=== PATIENT | female | born 1950 | race Caucasian/White ===

== ENCOUNTER 2024-10-22 11:32 | Emergency (ER) | payer BC, SELFPAY ==
[2024-10-22] VITALS (10 sets, daily range): BP systolic 154–210; BP diastolic 77–100; PULSE 76–82; BMI 29.8
[2024-10-22 11:38] LABS: Glucose - Point of Care 279 mg/dl (70-99)
[2024-10-22 11:49] LABS: % Basophils 0.6 % (0-2); % Eosinophils 2.9 % (0-6); % Immature Granulocytes 0.2 % (0-0.5); % Lymphocytes 33.1 % (20.5-51.1); % Monocytes 9.2 % (1.7-9.3); Absolute Basophils 0.1 10^3/uL (0-0.2); Absolute Eosinophils 0.3 10^3/uL (0-0.7); Absolute Lymphocytes 3.3 10^3/uL (1.2-3.4); Absolute Monocytes 0.9 10^3/uL (0.1-0.6); Absolute Neutrophils 5.4 10^3/uL (1.4-6.5); Hematocrit 35.3 % (37.0-47.0); Mean Corpuscular Hgb 29.3 pg (27.0-31.0); Mean Corpuscular Volume 86.3 fL (81.0-99.0); Mean Platelet Volume 11.2 fL (7.4-10.4); Nucleated Red Blood Cells % 0 %; Platelet Count 248 10^3/uL (130-400); Red Blood Cell Count 4.09 10^6/uL (4.20-5.40); Red Cell Dist. Width 12.6 % (11.5-14.5)
[2024-10-22 12:11] LABS: ALT (SGPT) 19 U/L (0-35); AST (SGOT) 19 U/L (14-36); Albumin 4.5 g/dl (3.5-5.0); Alkaline Phosphatase 53 U/L (38-126); Blood Urea Nitrogen 33 mg/dl (7-17); Calcium 9.7 mg/dl (8.4-10.2); Carbon Dioxide 27 mmol/L (22-30); Chloride 102 mmol/L (98-107); Estimated Creatinine Clearance 43 ml/min; Glucose 265 mg/dl (70-99); Potassium 4.1 mmol/L (3.5-5.1); Sodium 140 mmol/L (135-145); Total Bilirubin 0.6 mg/dl (0.2-1.3); Total Protein 7.2 g/dl (6.3-8.2); eGFR 43.15
--- NOTE | 2024-10-22 13:00 | ED.GENMED ---
History of Present Illness
General
Chief Complaint: Blood Sugar Problem
Source: patient
Exam Limitations: none
Time Seen by Provider: 10/22/24 12:28
Nursing documentation reviewed up to this point in time: agreed with
History of Present Illness
History of Present Illness:
74 y/o F with h/o HTN, HLD, IDDM, cva no deficits
also on metformin
initially EMS told RN that pt had episode of low blood sugar this morning while at exercise class at [facility] where she lives.
pt says she didn't eat this morning because she was planning on going to [place] at 11
she didn't think she gave herself her insulin becuase she didnt eat
went to exercise class and recalls feeling like she was going to pass out, her eyes were closed and she was lightheaded
she never fully passed out but the instructor noticed she was profusely sweating
i spoke directly with the class instructor
as the class went on, her eyes closed and she was doing weird movements with her tongue, she asked her several times if she was ok and pt was responding to her
class finished and the instructor took her to her room but pt was really sweaty amd tjat was odd
that's when they claled 911
pt says her dexcom showed no BG < 150s
she did call her daughter and she told her to eat some peanut butter which she did just in case her sugar was low but it never was
for ems BG 191
pt feels back to herself now
daughter who i salso at bedside said she is at her baseline but that she sometimes has trouble understanding her limits and does too much since she had a stroke
no headache, confusion, ewakness, neck pain, fever, urinary sypmtoms, abd pain, vomting, diarrhea, dehydration, chest pain, shortness of breath
no h/o alcohol use
no seizure disorder
Past History
Past History
ED Past Medical History: CVA, HTN, Hypercholesterolemia and NIDDM
ED Past Surgical History: Gynecological and Orthopedic
Social History
Tobacco: Non-smoker
Living: other (Independent living)
Employment: Retired
Phy Exam
Physical Exam
Physical Exam:
GENERAL: Alert , in no apparent distress very well appearing
HEAD: NCAT
EYE: pupils equal and reactive, no nystagmus, no photophobia
NECK: Supple,full rom, nontender
ENT: o/p clr, mmm.
CARDIAC: Regular rate and rhythm . no edema
LUNGS: Clear breath sounds bilaterally, no acute respiratory distress, no wheezes/rales/rhonchi
ABDOMEN: Soft, without focal tenderness, no r/g, no cvat
NEUROLOGICAL: Alert and orientedx 4, cn intact, no facial asymmetry, 5/5 strength in UE/LE, sensation intact, romberg neg, ambulates without assistance, neg pronator drift
SKIN: Warm and dry, skin intact.
MUSCULOSKELETAL: No edema, well perfused.
PSYCH: Normal and appropriate interaction.
Course
Orders/Labs/Results
Orders:
Orders
10/22/24 11:43
Alcohol Urgent
CBC/With Diff [Complete Blood Count/With Diff] Urgent
CMP [Comprehensive Metabolic Panel] Urgent
10/22/24 12:44
Electrocardiogram (*1) Urgent
Reason for Study: Syncope
EKG- Treatment ONCE
Orthostatic VS- Treatment ONCE
10/22/24 13:19
Add On- LAB Urgent
Tests Added?: alcohol
CT Head W/o Iv Contrast Urgent
Comment:
Reason For Exam: ams
10/22/24 15:04
Troponin I Urgent
Abnormal Lab Results
10/22/24 10/22/24
11:37 11:43
RBC 4.09 L 10^6/uL
(4.20-5.40)
Hct 35.3 L %
(37.0-47.0)
MPV 11.2 H fL
(7.4-10.4)
Absolute Monos (auto) 0.9 H 10^3/uL
(0.1-0.6)
BUN 33 H mg/dl
(7-17)
Creatinine 1.3 H mg/dL
(0.6-1.0)
Glucose 265 H mg/dl
(70-99)
POC Glucose 279 H mg/dl
(70-99)
10/22/24 11:43
10/22/24 11:43
Vital Signs
Initial and Last Documented VS:
Initial Vital Signs
Temp Pulse Resp BP Pulse Ox
36.6 C 75 15 155/86 97
10/22/24 11:40 10/22/24 11:40 10/22/24 11:40 10/22/24 11:40 10/22/24 11:40
Last Documented Vital Signs
Temp Pulse Resp BP Pulse Ox
36.6 C 79 20 208/88 97
10/22/24 11:40 10/22/24 15:30 10/22/24 15:30 10/22/24 16:00 10/22/24 15:36
MDM/Problems Addressed
Differential Diagnosis Includes:
NEAR SYNCOPE, SEIZURE, ORTHOSTASIS, ACS, STROKE
MDM/Problems Addressed:
74 y/o F
h/o cva, orthostasis
here with what soudned like near syncoe while at exercise class; hadn't eaten and was doin gmild exercise, closed her eyes and had a funny movement with her mouth and tongue but was resonsive
profusely sweat and then returned to baseline
bg normal despite triage note and ems note
exam here unreamrkable otherthan mild orthostasis with standing
bun/cr mildly elevated supporting she was maybe dehydrated
given IVf
w/u with head ct neg, ekg/trop neg
pt feels well no monitor activity
ambluated well no issues
d/w ed attending
d/c home
return precautions
*Critical Care Note
Total Time (30-74mins, 75-104mins- exclusive of procedures): Not Applicable
ED Attending Note
-
Portions of this chart may have been created with voice recognition software.� Occasional wrong word or��sound alike� substitutions may have occurred due to the inherent limitations of voice recognition software.
Discharge Plan
Departure
Patient Disposition: Home (Routine Discharge)
Date of Disposition: 10/22/24
Time of Disposition: 15:51
Patient with high blood pressure during this ER visit?: Yes
Condition: Fair
Covid-19: Not Applicable
Discharge Problem:
Near syncope
Instructions: Near Fainting (DC)
Prescriptions:
No Action
atorvastatin 40 mg tablet
40 mg PO QPM
clopidogrel 75 mg tablet
75 mg PO DAILY
amlodipine 10 mg tablet
10 mg PO DAILY
metformin 1,000 mg tablet
1,000 mg PO BID@0800,1700
losartan 25 mg tablet
25 mg PO DAILY
ergocalciferol (vitamin D2) 1,250 mcg (50,000 unit) capsule
1,250 mcg PO CROSS
aspirin 81 mg Tablet,Delayed Release (Dr/Ec)
81 mg PO DAILY
B12 5,000-100 mcg lozenge
1 gabriela SUBLINGUAL DAILY@1200
carvedilol 6.25 mg Tablet
6.25 mg PO BID Qty: 60 1RF
insulin aspart U-100 [Novolog FlexPen U-100 Insulin] 100 unit/mL (3 mL) Insulin Pen
7 unit SC AC Qty: 15 0RF
ferrous sulfate [FeroSul] 325 mg (65 mg iron) Tablet
325 mg PO Q48H Qty: 14 2RF
insulin glargine [Lantus Solostar U-100 Insulin] 100 unit/mL (3 mL) insulin pen
22 unit SC HS Qty: 15 0RF
Referrals:
Jeanie Shabazz, [Family Provider] - Follow up in 2-3 days
Activity Restrictions/Additional Instructions:
Not sure what happened to cause your symptoms today but you were mildly dehydrated and your blood pressure was a little lower standing up initially. Make sure that you are staying hydrated and that you lower yourself if you are feeling lightheaded
or like you might pass out, make sure you lay on the ground. Try not to get up suddenly from sitting
Follow-up with your family doctor this week. Make sure to stay hydrated.
Return for any change in mental status, fevers, high or low blood sugars, chest pain, confusion or any concern
Interventions
Interventions:
*Risk Screen - Suicide Last Done: 10/22/24 11:33
*General Assessment Last Done: 10/22/24 11:33
*Neglect/Abuse Screening Last Done: 10/22/24 11:33
*Nursing Disposition Last Done: 10/22/24 16:28
ED- Neurological Assessment Last Done: 10/22/24 11:51
Discharge Date and Time
Discharge Date/Time: 10/22/24 16:29
Print Language: PRYDEINIG
[2024-10-22 14:15] LABS: Alcohol None Detected
[2024-10-22 15:43] LABS: Troponin I < 0.012 ng/ml
== END 2024-10-22 16:29 | disposition home or self-care (01) ==
LOC: EMR 11:32
PROVIDERS: Physician Assistant; EMERGENCY PHYSICIAN Emergency Medicine; FAMILY PHYSICIAN Hospitalist
DX: R55 Syncope and collapse (principal); E11.9 Type 2 diabetes mellitus without complications; E78.00 Pure hypercholesterolemia, unspecified; I10 Essential (primary) hypertension; Z79.4 Long term (current) use of insulin; Z86.73 Personal history of transient ischemic attack (TIA), and cerebral infarction without residual deficits
CPT/HCPCS: 99284; 70450; 80053; 82077; 82962; 84484; 85025; 93005